=== PATIENT | male | born 1945 | race Caucasian/White ===

== ENCOUNTER 2017-09-01 15:08 | Inpatient (IN) | payer OTHER ==
[~2017-09-01] VITALS: Ht 177.8 cm; Wt 98.0 kg
[2017-09-01 16:24] LABS: UA SPECIFIC GRAVITY 1.015 (1.005-1.035); microscopic required? YES; urine erythrocyte NEGATIVE (NEGATIVE)
[2017-09-01 16:25] LABS: BASOPHIL % 0.6 % (0-2); PLATELET COUNT 273 x10^3mcL (130-400); RED CELL DISTRIBUTION WIDTH 14.3 % (11.5-14.5)
[2017-09-01 16:30] LABS: CALCIUM 8.9 mg/dL (8.5-10.1); CARBON DIOXIDE 25.3 mmol/L (21-32); CREATININE SERUM 1.3 mg/dL (0.7-1.3); POTASSIUM SERUM 4.2 mmol/L (3.5-5.1)
[2017-09-01 16:33] LABS: AMPHETAMINE QUAL UR NONE DETECTED (NEG <=1000)
[2017-09-01 16:37] LABS: BILIRUBIN TOTAL 0.46 mg/dL (0.20-1.00); TOTAL PROTEIN, SERUM 7.1 g/dL (6.4-8.2)
[2017-09-01 16:39] LABS: ALBUMIN 3.3 g/dL (3.4-5.0)
[2017-09-01] MEDS ORDERED: HALDOL DECA100 MG/ML PO (17:57)
[2017-09-01] MEDS ORDERED: COG1 PO (17:57)
[2017-09-01] MEDS ORDERED: CLONIDINE HCL0.1 MG PO (17:57)
[2017-09-01] MEDS ORDERED: ARICEPT5 MG PO (17:58)
[2017-09-01] MEDS ORDERED: NOR5 PO (17:58)
[2017-09-01] MEDS ORDERED: ZYPREXA2.5 M1 PO (17:58)
[2017-09-01 19:18] LABS: CHOLESTEROL/HDL RATIO 4.3; MAGNESIUM 2.2 mg/dL (1.8-2.4); PHOSPHOROUS 3.4 mg/dL (2.5-4.9)
[2017-09-01 19:26] LABS: T3 TOTAL 1.73 ng/mL
[2017-09-01 20:05] VITALS: BP 167/83
[2017-09-01 20:42] LABS: FREE T4 1.11 ng/dL (0.76-1.46); FREE THYROXINE INDEX 2.8 ug/dL (1.4-4.5); T4(THYROXINE) 8.2 ug/dL (4.7-13.3)
[2017-09-02 05:06] VITALS: BP 118/77
[2017-09-02 06:30] LABS: BASOPHIL % 0.4 % (0-2); PLATELET COUNT 268 x10^3mcL (130-400)
[2017-09-02 06:53] LABS: RED CELL DISTRIBUTION WIDTH 14.6 % (11.5-14.5)
[2017-09-02 07:17] LABS: CALCIUM 8.7 mg/dL (8.5-10.1); CARBON DIOXIDE 25.7 mmol/L (21-32); CHLORIDE SERUM 110 mmol/L (98-107); CREATININE SERUM 1.2 mg/dL (0.7-1.3); GFR1 > 60 mL/min; GLUCOSE SERUM 104 mg/dL (74-106); MAGNESIUM 2.1 mg/dL (1.8-2.4); PHOSPHOROUS 3.7 mg/dL (2.5-4.9); POTASSIUM SERUM 4.3 mmol/L (3.5-5.1); SODIUM SERUM 141 mmol/L (136-145)
[2017-09-02 10:03] VITALS: BP 101/44
[2017-09-02 18:33] VITALS: BP 108/61
[2017-09-02 21:13] VITALS: BP 113/65
[2017-09-02 21:28] VITALS: BP 113/65
[2017-09-03 05:55] LABS: CALCIUM 8.3 mg/dL (8.5-10.1); CARBON DIOXIDE 27.2 mmol/L (21-32); CHLORIDE SERUM 117 mmol/L (98-107); CREATININE SERUM 1.2 mg/dL (0.7-1.3); GFR1 > 60 mL/min; GLUCOSE SERUM 101 mg/dL (74-106); POTASSIUM SERUM 4.2 mmol/L (3.5-5.1); SODIUM SERUM 141 mmol/L (136-145)
[2017-09-03 06:03] LABS: BASOPHIL % 0.4 % (0-2); PLATELET COUNT 246 x10^3mcL (130-400)
[2017-09-03 06:08] VITALS: BP 133/71
[2017-09-03 06:52] LABS: RED CELL DISTRIBUTION WIDTH 14.8 % (11.5-14.5)
[2017-09-03 08:14] VITALS: BP 121/61
[2017-09-03 13:20] VITALS: BP 143/74
[2017-09-03 17:11] VITALS: BP 122/67
[2017-09-03 20:29] VITALS: BP 131/64
[2017-09-04 05:50] VITALS: BP 109/59
[2017-09-04 06:09] LABS: BASOPHIL % 0.4 % (0-2); PLATELET COUNT 256 x10^3mcL (130-400)
[2017-09-04 06:19] LABS: CALCIUM 8.8 mg/dL (8.5-10.1); CARBON DIOXIDE 28.3 mmol/L (21-32); CREATININE SERUM 1.3 mg/dL (0.7-1.3); MAGNESIUM 1.9 mg/dL (1.8-2.4); PHOSPHOROUS 3.4 mg/dL (2.5-4.9); POTASSIUM SERUM 4.4 mmol/L (3.5-5.1)
[2017-09-04 07:09] LABS: RED CELL DISTRIBUTION WIDTH 14.7 % (11.5-14.5)
[2017-09-04 09:46] VITALS: BP 121/61
[2017-09-04 12:46] VITALS: BP 117/62
[2017-09-04 16:53] VITALS: BP 123/62
[2017-09-04 21:07] VITALS: BP 135/65
[2017-09-05 05:30] VITALS: BP 174/88
[2017-09-05 06:29] LABS: BASOPHIL % 0.4 % (0-2); PLATELET COUNT 275 x10^3mcL (130-400); RED CELL DISTRIBUTION WIDTH 14.4 % (11.5-14.5)
[2017-09-05 07:17] LABS: CARBON DIOXIDE 26.8 mmol/L (21-32); CREATININE SERUM 1.3 mg/dL (0.7-1.3); MAGNESIUM 1.9 mg/dL (1.8-2.4); PHOSPHOROUS 2.6 mg/dL (2.5-4.9); POTASSIUM SERUM 4.2 mmol/L (3.5-5.1)
[2017-09-05 08:50] VITALS: BP 114/81; BP 144/81
[2017-09-05 12:57] VITALS: BP 104/51
[2017-09-05 16:54] VITALS: BP 116/61
[2017-09-05 20:36] VITALS: BP 127/68
[2017-09-06 05:39] VITALS: BP 103/52
[2017-09-06 06:00] LABS: BASOPHIL % 0.3 % (0-2); PLATELET COUNT 255 x10^3mcL (130-400); RED CELL DISTRIBUTION WIDTH 14.4 % (11.5-14.5)
[2017-09-06 06:21] LABS: CARBON DIOXIDE 29.4 mmol/L (21-32); CREATININE SERUM 1.5 mg/dL (0.7-1.3); MAGNESIUM 2.1 mg/dL (1.8-2.4); PHOSPHOROUS 3.4 mg/dL (2.5-4.9); POTASSIUM SERUM 4.4 mmol/L (3.5-5.1)
[2017-09-06 08:43] VITALS: BP 125/66
[2017-09-06 13:50] VITALS: BP 118/66
[2017-09-06 17:35] VITALS: BP 122/72
[2017-09-06 21:04] VITALS: BP 117/65
[2017-09-07 06:22] LABS: CALCIUM 9.3 mg/dL (8.5-10.1); CARBON DIOXIDE 29.6 mmol/L (21-32); CREATININE SERUM 1.5 mg/dL (0.7-1.3); MAGNESIUM 2.1 mg/dL (1.8-2.4); PHOSPHOROUS 2.9 mg/dL (2.5-4.9); POTASSIUM SERUM 4.3 mmol/L (3.5-5.1)
[2017-09-07 06:33] VITALS: BP 118/73
[2017-09-07 06:51] LABS: BASOPHIL % 0.4 % (0-2); PLATELET COUNT 280 x10^3mcL (130-400); RED CELL DISTRIBUTION WIDTH 14.3 % (11.5-14.5)
[2017-09-07 09:06] LABS: IRON 52 ug/dL (65-170)
[2017-09-07 09:24] LABS: TOTAL IRON BINDING CAPACITY 237 ug/dL (250-450)
[2017-09-07 09:58] LABS: RED BLOOD CELLS 4.22 M/mm3 (4.52-5.90)
[2017-09-07 10:41] VITALS: BP 140/75
[2017-09-07 14:49] VITALS: BP 134/71
[2017-09-07 16:34] VITALS: BP 129/79
[2017-09-07 21:13] VITALS: BP 143/78
[2017-09-08 04:50] VITALS: BP 132/72
[2017-09-08 07:13] LABS: BASOPHIL % 0.5 % (0-2); PLATELET COUNT 290 x10^3mcL (130-400)
[2017-09-08 07:31] LABS: CALCIUM 9.1 mg/dL (8.5-10.1); CARBON DIOXIDE 28.8 mmol/L (21-32); CREATININE SERUM 1.4 mg/dL (0.7-1.3); MAGNESIUM 2.1 mg/dL (1.8-2.4); PHOSPHOROUS 2.6 mg/dL (2.5-4.9); POTASSIUM SERUM 4.3 mmol/L (3.5-5.1)
[2017-09-08 07:32] LABS: RED CELL DISTRIBUTION WIDTH 14.6 % (11.5-14.5)
[2017-09-08 08:00] VITALS: BP 132/72
[2017-09-08 09:59] VITALS: BP 147/86
[2017-09-08 12:00] VITALS: BP 155/69
[2017-09-08 17:00] VITALS: BP 125/77
[2017-09-08 21:13] VITALS: BP 114/65
[2017-09-09 04:59] VITALS: BP 113/55
[2017-09-09 07:32] LABS: CARBON DIOXIDE 27.7 mmol/L (21-32); CREATININE SERUM 1.5 mg/dL (0.7-1.3); MAGNESIUM 2.3 mg/dL (1.8-2.4); PHOSPHOROUS 3.6 mg/dL (2.5-4.9); POTASSIUM SERUM 4.2 mmol/L (3.5-5.1)
[2017-09-09 07:36] LABS: BASOPHIL % 0.5 % (0-2); PLATELET COUNT 292 x10^3mcL (130-400)
[2017-09-09 07:37] LABS: RED CELL DISTRIBUTION WIDTH 14.7 % (11.5-14.5)
[2017-09-09 13:23] VITALS: BP 103/58
[2017-09-09 17:00] VITALS: BP 111/55
[2017-09-09 17:45] VITALS: BP 100/57
[2017-09-09 20:57] VITALS: BP 109/58
[2017-09-09 23:46] VITALS: BP 117/69
[2017-09-10 05:39] VITALS: BP 123/62
[2017-09-10 07:18] LABS: BASOPHIL % 0.3 % (0-2); PLATELET COUNT 304 x10^3mcL (130-400); RED CELL DISTRIBUTION WIDTH 14.2 % (11.5-14.5)
[2017-09-10 07:26] LABS: CALCIUM 9.2 mg/dL (8.5-10.1); CARBON DIOXIDE 29.2 mmol/L (21-32); CREATININE SERUM 1.6 mg/dL (0.7-1.3); MAGNESIUM 2.1 mg/dL (1.8-2.4); PHOSPHOROUS 2.9 mg/dL (2.5-4.9)
[2017-09-10 09:00] VITALS: BP 104/60
[2017-09-10 10:08] VITALS: BP 104/59
[2017-09-10 13:34] VITALS: BP 119/60
[2017-09-10 17:34] VITALS: BP 130/64
[2017-09-10 21:34] VITALS: BP 118/72
[2017-09-11 05:01] VITALS: BP 127/71
[2017-09-11 06:45] LABS: BASOPHIL % 0.2 % (0-2); PLATELET COUNT 329 x10^3mcL (130-400); RED CELL DISTRIBUTION WIDTH 13.8 % (11.5-14.5)
[2017-09-11 07:31] LABS: CALCIUM 9.2 mg/dL (8.5-10.1); CARBON DIOXIDE 27.8 mmol/L (21-32); CREATININE SERUM 1.4 mg/dL (0.7-1.3); MAGNESIUM 2.1 mg/dL (1.8-2.4); PHOSPHOROUS 2.6 mg/dL (2.5-4.9); POTASSIUM SERUM 4.1 mmol/L (3.5-5.1)
[2017-09-11 09:50] VITALS: BP 130/71
[2017-09-11 15:02] VITALS: BP 127/75
[2017-09-11 19:05] VITALS: BP 133/78
[2017-09-11 21:57] VITALS: BP 129/76
[2017-09-12 05:26] VITALS: BP 151/96
[2017-09-12 06:59] LABS: CALCIUM 9.5 mg/dL (8.5-10.1); CHLORIDE SERUM 106 mmol/L (98-107); CREATININE SERUM 1.2 mg/dL (0.7-1.3); GFR1 > 60 mL/min; GLUCOSE SERUM 108 mg/dL (74-106); PHOSPHOROUS 1.7 mg/dL (2.5-4.9); POTASSIUM SERUM 3.7 mmol/L (3.5-5.1); SODIUM SERUM 143 mmol/L (136-145)
[2017-09-12 07:03] LABS: BASOPHIL % 0.3 % (0-2); PLATELET COUNT 328 x10^3mcL (130-400); RED CELL DISTRIBUTION WIDTH 14.4 % (11.5-14.5)
[2017-09-12 08:00] VITALS: BP 147/83
[2017-09-12 12:19] VITALS: BP 144/83
[2017-09-12 15:07] VITALS: BP 134/68
[2017-09-12 18:08] VITALS: BP 135/69
[2017-09-12 21:01] VITALS: BP 109/63
[2017-09-13 05:32] VITALS: BP 122/77
[2017-09-13 06:29] LABS: CALCIUM 9.3 mg/dL (8.5-10.1); CARBON DIOXIDE 30.7 mmol/L (21-32); CREATININE SERUM 1.3 mg/dL (0.7-1.3); PHOSPHOROUS 2.8 mg/dL (2.5-4.9); POTASSIUM SERUM 4.5 mmol/L (3.5-5.1)
[2017-09-13 06:33] LABS: BASOPHIL % 0.4 % (0-2); PLATELET COUNT 334 x10^3mcL (130-400); RED CELL DISTRIBUTION WIDTH 14.1 % (11.5-14.5)
[2017-09-13 09:47] VITALS: BP 117/61
[2017-09-13 14:19] VITALS: BP 119/48
[2017-09-13 16:48] VITALS: BP 122/70
[2017-09-13 20:53] VITALS: BP 109/62
[2017-09-14 05:59] LABS: BASOPHIL % 0.3 % (0-2); PLATELET COUNT 339 x10^3mcL (130-400); RED CELL DISTRIBUTION WIDTH 14.5 % (11.5-14.5)
[2017-09-14 06:06] VITALS: BP 117/60
[2017-09-14 06:25] LABS: CALCIUM 9.3 mg/dL (8.5-10.1); CARBON DIOXIDE 29.4 mmol/L (21-32); CHLORIDE SERUM 110 mmol/L (98-107); CREATININE SERUM 1.2 mg/dL (0.7-1.3); GFR1 > 60 mL/min; GLUCOSE SERUM 162 mg/dL (74-106); MAGNESIUM 1.9 mg/dL (1.8-2.4); PHOSPHOROUS 2.9 mg/dL (2.5-4.9); POTASSIUM SERUM 4.6 mmol/L (3.5-5.1); SODIUM SERUM 145 mmol/L (136-145)
[2017-09-14 09:18] VITALS: BP 113/64
[2017-09-14 13:32] VITALS: BP 120/69
[2017-09-14 17:10] VITALS: BP 114/63
[2017-09-14 22:13] VITALS: BP 109/65
[2017-09-15 06:00] LABS: PLATELET COUNT 361 x10^3mcL (130-400); RED CELL DISTRIBUTION WIDTH 14.2 % (11.5-14.5)
[2017-09-15 06:07] VITALS: BP 105/66
[2017-09-15 06:27] LABS: CALCIUM 9.3 mg/dL (8.5-10.1); CARBON DIOXIDE 27.6 mmol/L (21-32); CREATININE SERUM 1.3 mg/dL (0.7-1.3); PHOSPHOROUS 2.5 mg/dL (2.5-4.9); POTASSIUM SERUM 4.2 mmol/L (3.5-5.1)
[2017-09-15 06:43] LABS: BASOPHIL % 0 % (0-2)
[2017-09-15 09:20] VITALS: BP 140/80
[2017-09-15 09:50] VITALS: BP 143/83
[2017-09-15 12:36] VITALS: BP 147/82
[2017-09-15 17:46] VITALS: BP 125/83
[2017-09-15 21:41] VITALS: BP 139/62
[2017-09-16 06:17] VITALS: BP 136/65
[2017-09-16 06:23] LABS: BASOPHIL % 0.3 % (0-2); PLATELET COUNT 358 x10^3mcL (130-400); RED CELL DISTRIBUTION WIDTH 14.4 % (11.5-14.5)
[2017-09-16 07:10] LABS: CALCIUM 9.6 mg/dL (8.5-10.1); CARBON DIOXIDE 28.8 mmol/L (21-32); CHLORIDE SERUM 108 mmol/L (98-107); CREATININE SERUM 1.1 mg/dL (0.7-1.3); GFR1 > 60 mL/min; GLUCOSE SERUM 115 mg/dL (74-106); MAGNESIUM 1.9 mg/dL (1.8-2.4); POTASSIUM SERUM 3.4 mmol/L (3.5-5.1); SODIUM SERUM 146 mmol/L (136-145)
[2017-09-16 09:15] VITALS: BP 124/60
[2017-09-16 13:18] VITALS: BP 110/54
[2017-09-16 21:23] VITALS: BP 92/52
[2017-09-16 21:35] VITALS: BP 101/58
[2017-09-17 05:19] VITALS: BP 98/60
[2017-09-17 07:55] VITALS: BP 124/71
[2017-09-17 21:55] VITALS: BP 113/45
[2017-09-18 05:41] VITALS: BP 104/46
[2017-09-18 06:49] LABS: PLATELET COUNT 346 x10^3mcL (130-400); RED CELL DISTRIBUTION WIDTH 14.3 % (11.5-14.5)
[2017-09-18 06:57] LABS: CALCIUM 9.4 mg/dL (8.5-10.1); CHLORIDE SERUM 107 mmol/L (98-107); CREATININE SERUM 1.1 mg/dL (0.7-1.3); GFR1 > 60 mL/min; GLUCOSE SERUM 160 mg/dL (74-106); PHOSPHOROUS 2.7 mg/dL (2.5-4.9); POTASSIUM SERUM 4.5 mmol/L (3.5-5.1); SODIUM SERUM 141 mmol/L (136-145)
[2017-09-18 07:37] LABS: BASOPHIL % 0 % (0-2)
[2017-09-18 13:40] VITALS: BP 138/66
[2017-09-18 17:38] VITALS: BP 132/64
[2017-09-18 21:16] VITALS: BP 129/63
[2017-09-19 06:01] VITALS: BP 130/63
[2017-09-19 06:30] LABS: CALCIUM 9.3 mg/dL (8.5-10.1); CARBON DIOXIDE 29.1 mmol/L (21-32); CHLORIDE SERUM 107 mmol/L (98-107); CREATININE SERUM 1.1 mg/dL (0.7-1.3); GFR1 > 60 mL/min; GLUCOSE SERUM 160 mg/dL (74-106); PHOSPHOROUS 2.6 mg/dL (2.5-4.9); POTASSIUM SERUM 4.9 mmol/L (3.5-5.1); SODIUM SERUM 140 mmol/L (136-145)
[2017-09-19 07:07] LABS: PLATELET COUNT 372 x10^3mcL (130-400); RED CELL DISTRIBUTION WIDTH 14.5 % (11.5-14.5)
[2017-09-19 07:08] LABS: BASOPHIL % 0 % (0-2)
[2017-09-19 08:55] VITALS: BP 125/64
[2017-09-19 10:08] VITALS: BP 129/67
[2017-09-19 13:10] VITALS: BP 131/71
[2017-09-19 16:35] VITALS: BP 123/65
[2017-09-19 22:11] VITALS: BP 119/60
[2017-09-20 06:07] VITALS: BP 114/63
[2017-09-20 06:39] LABS: CALCIUM 9.6 mg/dL (8.5-10.1); CHLORIDE SERUM 107 mmol/L (98-107); CREATININE SERUM 1.1 mg/dL (0.7-1.3); GFR1 > 60 mL/min; GLUCOSE SERUM 169 mg/dL (74-106); MAGNESIUM 2.3 mg/dL (1.8-2.4); PHOSPHOROUS 3.1 mg/dL (2.5-4.9); POTASSIUM SERUM 4.9 mmol/L (3.5-5.1); SODIUM SERUM 141 mmol/L (136-145)
[2017-09-20 07:05] LABS: PLATELET COUNT 384 x10^3mcL (130-400)
[2017-09-20 07:26] LABS: BASOPHIL % 0 % (0-2); RED CELL DISTRIBUTION WIDTH 14.6 % (11.5-14.5)
[2017-09-20 08:37] VITALS: BP 115/64
[2017-09-20 13:05] VITALS: BP 119/68
[2017-09-20 18:16] VITALS: BP 120/61
[2017-09-20 21:05] VITALS: BP 121/62
[2017-09-21 05:23] VITALS: BP 120/63
[2017-09-21 08:57] VITALS: BP 129/67
[2017-09-21 12:49] VITALS: BP 123/61
[2017-09-21 17:10] VITALS: BP 123/63
[2017-09-21 21:29] VITALS: BP 123/69
[2017-09-22 05:19] VITALS: BP 123/69
[2017-09-22 05:36] VITALS: BP 123/68
[2017-09-22 06:25] LABS: PLATELET COUNT 355 x10^3mcL (130-400)
[2017-09-22 06:39] LABS: BASOPHIL % 0 % (0-2); RED CELL DISTRIBUTION WIDTH 14.9 % (11.5-14.5)
[2017-09-22 06:55] LABS: CALCIUM 9.2 mg/dL (8.5-10.1); CARBON DIOXIDE 24.9 mmol/L (21-32); CHLORIDE SERUM 107 mmol/L (98-107); CREATININE SERUM 1.1 mg/dL (0.7-1.3); GFR1 > 60 mL/min; GLUCOSE SERUM 171 mg/dL (74-106); MAGNESIUM 2.3 mg/dL (1.8-2.4); PHOSPHOROUS 3.3 mg/dL (2.5-4.9); SODIUM SERUM 137 mmol/L (136-145)
[2017-09-22 06:58] LABS: IRON 69 ug/dL (65-170); TOTAL IRON BINDING CAPACITY 245 ug/dL (250-450)
[2017-09-22 08:35] VITALS: BP 120/61
[2017-09-22 13:00] VITALS: BP 126/71
[2017-09-22 17:52] VITALS: BP 158/79
[2017-09-22 20:25] VITALS: BP 124/58
[2017-09-23 05:13] VITALS: BP 119/68
[2017-09-23 07:16] LABS: CARBON DIOXIDE 26.2 mmol/L (21-32); CHLORIDE SERUM 107 mmol/L (98-107); GFR1 > 60 mL/min; GLUCOSE SERUM 161 mg/dL (74-106); SODIUM SERUM 137 mmol/L (136-145)
[2017-09-23 07:25] LABS: BASOPHIL % 0.2 % (0-2); PLATELET COUNT 351 x10^3mcL (130-400); RED CELL DISTRIBUTION WIDTH 14.8 % (11.5-14.5)
[2017-09-23 07:44] VITALS: BP 105/42
[2017-09-23 10:23] VITALS: BP 149/77
[2017-09-23 13:05] VITALS: BP 117/48
[2017-09-23 17:28] VITALS: BP 118/64
[2017-09-23 20:10] VITALS: BP 101/47
[2017-09-24 03:59] VITALS: BP 116/65
[2017-09-24 06:31] LABS: CALCIUM 8.8 mg/dL (8.5-10.1); CARBON DIOXIDE 26.7 mmol/L (21-32); CHLORIDE SERUM 106 mmol/L (98-107); GLUCOSE SERUM 160 mg/dL (74-106); MAGNESIUM 2.1 mg/dL (1.8-2.4); PHOSPHOROUS 3.2 mg/dL (2.5-4.9); POTASSIUM SERUM 5.1 mmol/L (3.5-5.1); SODIUM SERUM 138 mmol/L (136-145)
[2017-09-24 06:42] LABS: BASOPHIL % 0.1 % (0-2); PLATELET COUNT 327 x10^3mcL (130-400)
[2017-09-24 06:48] LABS: RED CELL DISTRIBUTION WIDTH 15.1 % (11.5-14.5)
[2017-09-24 08:39] VITALS: BP 122/56
[2017-09-24 12:48] VITALS: BP 132/74
[2017-09-24 16:52] VITALS: BP 121/67
[2017-09-24 21:39] VITALS: BP 111/49
[2017-09-25 05:50] VITALS: BP 124/69
[2017-09-25 06:23] LABS: BASOPHIL % 0.1 % (0-2); PLATELET COUNT 318 x10^3mcL (130-400)
[2017-09-25 06:27] LABS: CARBON DIOXIDE 28.5 mmol/L (21-32); CHLORIDE SERUM 106 mmol/L (98-107); GLUCOSE SERUM 131 mg/dL (74-106); MAGNESIUM 2.2 mg/dL (1.8-2.4); PHOSPHOROUS 3.1 mg/dL (2.5-4.9); SODIUM SERUM 138 mmol/L (136-145)
[2017-09-25 06:31] LABS: GFR1 > 60 mL/min
[2017-09-25 06:55] LABS: RED CELL DISTRIBUTION WIDTH 14.6 % (11.5-14.5)
[2017-09-25 08:36] VITALS: BP 127/74
[2017-09-25 12:17] VITALS: BP 131/76
[2017-09-25 16:10] VITALS: BP 136/73
[2017-09-25 21:11] VITALS: BP 117/62
[2017-09-26 05:36] VITALS: BP 125/47
[2017-09-26 06:27] LABS: CALCIUM 8.7 mg/dL (8.5-10.1); CARBON DIOXIDE 28.8 mmol/L (21-32); CHLORIDE SERUM 105 mmol/L (98-107); CREATININE SERUM 1.1 mg/dL (0.7-1.3); GFR1 > 60 mL/min; GLUCOSE SERUM 134 mg/dL (74-106); MAGNESIUM 2.1 mg/dL (1.8-2.4); POTASSIUM SERUM 5.1 mmol/L (3.5-5.1); SODIUM SERUM 138 mmol/L (136-145)
[2017-09-26 07:35] LABS: PLATELET COUNT 274 x10^3mcL (130-400)
[2017-09-26 07:36] LABS: BASOPHIL % 0 % (0-2); RED CELL DISTRIBUTION WIDTH 14.9 % (11.5-14.5)
[2017-09-26 09:13] VITALS: BP 110/61
[2017-09-26 13:42] VITALS: BP 122/59
[2017-09-26 17:03] VITALS: BP 122/61
[2017-09-26 21:16] VITALS: BP 117/60
[2017-09-27 03:51] VITALS: BP 116/60
[2017-09-27 09:18] VITALS: BP 131/69
[2017-09-27 13:58] VITALS: BP 126/68
[2017-09-27 17:21] VITALS: BP 133/72
[2017-09-27 20:57] VITALS: BP 123/62
[2017-09-28] VITALS (7 sets, daily range): BP systolic 120–138; BP diastolic 61–78
[2017-09-28 06:47] LABS: BASOPHIL % 0 % (0-2); PLATELET COUNT 235 x10^3mcL (130-400); RED CELL DISTRIBUTION WIDTH 14.9 % (11.5-14.5)
[2017-09-28 07:25] LABS: CALCIUM 8.5 mg/dL (8.5-10.1); CARBON DIOXIDE 28.1 mmol/L (21-32); CHLORIDE SERUM 106 mmol/L (98-107); CREATININE SERUM 0.9 mg/dL (0.7-1.3); GFR1 > 60 mL/min; GLUCOSE SERUM 132 mg/dL (74-106); PHOSPHOROUS 2.9 mg/dL (2.5-4.9); POTASSIUM SERUM 5.3 mmol/L (3.5-5.1); SODIUM SERUM 139 mmol/L (136-145)
[2017-09-29 05:04] VITALS: BP 115/60
[2017-09-29 10:16] VITALS: BP 132/63
[2017-09-29 13:38] VITALS: BP 122/62
[2017-09-29 16:47] VITALS: BP 133/76
[2017-09-29 20:10] VITALS: BP 103/54
[2017-09-30 05:17] VITALS: BP 122/64
[2017-09-30 08:52] VITALS: BP 116/64
[2017-09-30 12:47] VITALS: BP 138/72
[2017-09-30 18:45] VITALS: BP 121/71
[2017-09-30 21:43] VITALS: BP 122/65
[2017-10-01 05:59] VITALS: BP 128/67
[2017-10-01 10:13] VITALS: BP 128/55
[2017-10-01 12:53] VITALS: BP 128/55
[2017-10-01 14:55] VITALS: BP 117/62
[2017-10-01 18:45] VITALS: BP 119/43
[2017-10-01 20:27] VITALS: BP 119/71
[2017-10-02 05:41] VITALS: BP 122/68
[2017-10-02 08:20] VITALS: BP 132/72
[2017-10-02 13:20] VITALS: BP 119/61
[2017-10-02 16:38] LABS: PLATELET COUNT 186 x10^3mcL (130-400)
[2017-10-02 16:40] LABS: BASOPHIL % 0 % (0-2); RED CELL DISTRIBUTION WIDTH 15.4 % (11.5-14.5)
[2017-10-02 20:43] VITALS: BP 126/68
[2017-10-03 05:45] VITALS: BP 133/61
[2017-10-03 06:27] LABS: CALCIUM 8.1 mg/dL (8.5-10.1); CARBON DIOXIDE 25.2 mmol/L (21-32); CHLORIDE SERUM 107 mmol/L (98-107); CREATININE SERUM 0.9 mg/dL (0.7-1.3); GFR1 > 60 mL/min; GLUCOSE SERUM 145 mg/dL (74-106); MAGNESIUM 1.9 mg/dL (1.8-2.4); PHOSPHOROUS 2.5 mg/dL (2.5-4.9); POTASSIUM SERUM 5.1 mmol/L (3.5-5.1); SODIUM SERUM 137 mmol/L (136-145)
[2017-10-03 06:42] LABS: BASOPHIL % 0.4 % (0-2); PLATELET COUNT 169 x10^3mcL (130-400)
[2017-10-03 06:43] LABS: RED CELL DISTRIBUTION WIDTH 15.2 % (11.5-14.5)
[2017-10-03 08:44] VITALS: BP 131/68
[2017-10-03 13:08] VITALS: BP 138/70
[2017-10-03 16:52] VITALS: BP 112/61
[2017-10-03 21:11] VITALS: BP 132/60
[2017-10-04 06:16] VITALS: BP 143/65
[2017-10-04 08:33] VITALS: BP 143/65
[2017-10-04 08:45] VITALS: BP 125/61
[2017-10-04 13:44] VITALS: BP 124/63
[2017-10-04 16:55] VITALS: BP 123/69
[2017-10-04 19:43] VITALS: Ht 177.8 cm; Wt 98.0 kg
[2017-10-04 20:53] VITALS: BP 142/76
[2017-10-05 05:45] VITALS: BP 135/66
[2017-10-05 09:20] VITALS: BP 111/66
[2017-10-05 09:22] LABS: PLATELET COUNT 166 x10^3mcL (130-400)
[2017-10-05 09:27] LABS: BASOPHIL % 0 % (0-2); RED CELL DISTRIBUTION WIDTH 15.8 % (11.5-14.5)
[2017-10-05 09:37] LABS: ALKALINE PHOSPHATASE 71 U/L (46-116); ALT/SGPT 31 U/L (16-63); AST/SGOT 11 U/L (15-37); BILIRUBIN TOTAL 0.7 mg/dL (0.20-1.00); CALCIUM 8.1 mg/dL (8.5-10.1); CARBON DIOXIDE 28.2 mmol/L (21-32); CHLORIDE SERUM 109 mmol/L (98-107); CREATININE SERUM 0.8 mg/dL (0.7-1.3); GFR1 > 60 mL/min; GLUCOSE SERUM 102 mg/dL (74-106); POTASSIUM SERUM 4.7 mmol/L (3.5-5.1); SODIUM SERUM 141 mmol/L (136-145)
[2017-10-05 09:50] LABS: ALBUMIN 2.4 g/dL (3.4-5.0); TOTAL PROTEIN, SERUM 5.3 g/dL (6.4-8.2)
[2017-10-05 11:45] VITALS: BP 99/53
[2017-10-05 13:40] VITALS: BP 107/61
[2017-10-05 17:40] VITALS: BP 102/53
[2017-10-05 21:09] VITALS: BP 111/57
[2017-10-06 05:19] VITALS: BP 115/60
[2017-10-06 08:37] VITALS: BP 107/63
[2017-10-06 13:33] VITALS: BP 100/49
[2017-10-06 16:50] VITALS: BP 111/60
[2017-10-06 21:02] VITALS: BP 110/63
[2017-10-07 05:04] VITALS: BP 112/62
[2017-10-07 07:55] VITALS: BP 112/62
[2017-10-07 08:25] VITALS: BP 113/56
[2017-10-07 13:50] VITALS: BP 128/67
[2017-10-07 17:40] VITALS: BP 125/61
[2017-10-07 21:28] VITALS: BP 124/54
[2017-10-08 05:48] VITALS: BP 138/75
[2017-10-08 06:27] LABS: BASOPHIL % 0.1 % (0-2); PLATELET COUNT 138 x10^3mcL (130-400)
[2017-10-08 06:56] LABS: CALCIUM 8.2 mg/dL (8.5-10.1); CHLORIDE SERUM 106 mmol/L (98-107); CREATININE SERUM 0.8 mg/dL (0.7-1.3); GFR1 > 60 mL/min; GLUCOSE SERUM 149 mg/dL (74-106); SODIUM SERUM 138 mmol/L (136-145)
[2017-10-08 07:02] LABS: RED CELL DISTRIBUTION WIDTH 15.7 % (11.5-14.5)
[2017-10-08 08:00] VITALS: BP 143/74
[2017-10-08 13:21] VITALS: BP 112/61
[2017-10-08 16:53] VITALS: BP 121/60
[2017-10-08 20:46] VITALS: BP 113/58
[2017-10-09 04:57] VITALS: BP 115/60
[2017-10-09 06:25] LABS: PLATELET COUNT 139 x10^3mcL (130-400)
[2017-10-09 06:38] LABS: BASOPHIL % 0 % (0-2); RED CELL DISTRIBUTION WIDTH 16.5 % (11.5-14.5)
[2017-10-09 06:46] LABS: CARBON DIOXIDE 27.7 mmol/L (21-32); CHLORIDE SERUM 103 mmol/L (98-107); GFR1 > 60 mL/min; GLUCOSE SERUM 141 mg/dL (74-106); MAGNESIUM 1.7 mg/dL (1.8-2.4); PHOSPHOROUS 3.1 mg/dL (2.5-4.9); POTASSIUM SERUM 4.9 mmol/L (3.5-5.1); SODIUM SERUM 137 mmol/L (136-145)
[2017-10-09 07:50] VITALS: BP 124/62
[2017-10-09 12:21] VITALS: BP 116/58
[2017-10-09 18:09] VITALS: BP 119/65
[2017-10-09 20:14] VITALS: BP 117/62
[2017-10-10 05:31] VITALS: BP 109/62
[2017-10-10 06:28] LABS: PLATELET COUNT 130 x10^3mcL (130-400)
[2017-10-10 06:29] LABS: BASOPHIL % 0 % (0-2)
[2017-10-10 06:36] LABS: CALCIUM 8.7 mg/dL (8.5-10.1); CARBON DIOXIDE 27.1 mmol/L (21-32); CHLORIDE SERUM 105 mmol/L (98-107); CREATININE SERUM 0.9 mg/dL (0.7-1.3); GFR1 > 60 mL/min; GLUCOSE SERUM 136 mg/dL (74-106); MAGNESIUM 1.8 mg/dL (1.8-2.4); PHOSPHOROUS 2.9 mg/dL (2.5-4.9); POTASSIUM SERUM 4.7 mmol/L (3.5-5.1); SODIUM SERUM 138 mmol/L (136-145)
[2017-10-10 07:35] VITALS: BP 109/62
[2017-10-10 10:03] VITALS: BP 112/57
[2017-10-10 13:35] VITALS: BP 107/63
[2017-10-10 17:20] VITALS: BP 104/48
[2017-10-10 21:50] VITALS: BP 112/56
[2017-10-11 05:33] VITALS: BP 122/65
[2017-10-11 08:11] LABS: CALCIUM 8.2 mg/dL (8.5-10.1); CARBON DIOXIDE 24.9 mmol/L (21-32); CHLORIDE SERUM 105 mmol/L (98-107); CREATININE SERUM 0.9 mg/dL (0.7-1.3); GFR1 > 60 mL/min; GLUCOSE SERUM 148 mg/dL (74-106); MAGNESIUM 1.8 mg/dL (1.8-2.4); PHOSPHOROUS 2.5 mg/dL (2.5-4.9); SODIUM SERUM 137 mmol/L (136-145)
[2017-10-11 08:24] LABS: PLATELET COUNT 141 x10^3mcL (130-400)
[2017-10-11 08:26] LABS: BASOPHIL % 0 % (0-2); RED CELL DISTRIBUTION WIDTH 16.8 % (11.5-14.5)
[2017-10-11 10:04] VITALS: BP 114/52
[2017-10-11 12:55] VITALS: BP 114/63
[2017-10-11 17:25] VITALS: BP 123/57
[2017-10-11 20:51] VITALS: BP 131/81
[2017-10-12 05:23] VITALS: BP 126/69
[2017-10-12 08:09] LABS: BASOPHIL % 0.3 % (0-2)
[2017-10-12 08:20] LABS: RED CELL DISTRIBUTION WIDTH 16.4 % (11.5-14.5)
[2017-10-12 08:21] LABS: PLATELET COUNT 98 x10^3mcL (130-400)
[2017-10-12 09:12] LABS: CALCIUM 8.8 mg/dL (8.5-10.1); CARBON DIOXIDE 25.1 mmol/L (21-32); CHLORIDE SERUM 105 mmol/L (98-107); CREATININE SERUM 0.9 mg/dL (0.7-1.3); GFR1 > 60 mL/min; GLUCOSE SERUM 143 mg/dL (74-106); MAGNESIUM 1.9 mg/dL (1.8-2.4); PHOSPHOROUS 2.6 mg/dL (2.5-4.9); POTASSIUM SERUM 5.4 mmol/L (3.5-5.1); SODIUM SERUM 137 mmol/L (136-145)
[2017-10-12 09:33] VITALS: BP 140/59
[2017-10-12 12:12] VITALS: BP 114/61
[2017-10-12 17:32] VITALS: BP 106/64
[2017-10-12 20:38] VITALS: BP 117/62
[2017-10-13 05:33] VITALS: BP 135/71
[2017-10-13 06:52] LABS: CALCIUM 8.1 mg/dL (8.5-10.1); CARBON DIOXIDE 25.4 mmol/L (21-32); CHLORIDE SERUM 103 mmol/L (98-107); CREATININE SERUM 0.7 mg/dL (0.7-1.3); GFR1 > 60 mL/min; GLUCOSE SERUM 137 mg/dL (74-106); POTASSIUM SERUM 4.6 mmol/L (3.5-5.1); SODIUM SERUM 135 mmol/L (136-145)
[2017-10-13 07:22] LABS: BASOPHIL % 0 % (0-2); PLATELET COUNT 115 x10^3mcL (130-400); RED CELL DISTRIBUTION WIDTH 16.3 % (11.5-14.5)
[2017-10-13 09:13] VITALS: BP 115/66
[2017-10-13 12:15] VITALS: BP 118/63
[2017-10-13 16:58] VITALS: BP 113/60
[2017-10-13 20:42] VITALS: BP 97/48
[2017-10-14 04:49] VITALS: BP 115/64
[2017-10-14 08:40] VITALS: BP 98/49
[2017-10-14 12:01] VITALS: BP 104/59
[2017-10-14 16:33] VITALS: BP 116/62
[2017-10-14 20:51] VITALS: BP 114/52
[2017-10-15 06:18] VITALS: BP 108/47
[2017-10-15 08:45] VITALS: BP 123/47
[2017-10-15 12:42] VITALS: BP 117/66
[2017-10-15 17:20] VITALS: BP 111/69
[2017-10-15 20:13] VITALS: BP 116/62
[2017-10-16 05:13] VITALS: BP 116/72
[2017-10-16 09:57] VITALS: BP 128/78
[2017-10-16 12:52] VITALS: BP 116/64
[2017-10-16 17:05] VITALS: BP 115/56
[2017-10-16 21:09] VITALS: BP 127/71
[2017-10-17 05:50] VITALS: BP 113/70
[2017-10-17 06:57] LABS: BASOPHIL % 0 % (0-2); PLATELET COUNT 106 x10^3mcL (130-400); RED CELL DISTRIBUTION WIDTH 16.4 % (11.5-14.5)
[2017-10-17 07:15] LABS: CARBON DIOXIDE 28.3 mmol/L (21-32); CHLORIDE SERUM 103 mmol/L (98-107); CREATININE SERUM 0.9 mg/dL (0.7-1.3); GFR1 > 60 mL/min; GLUCOSE SERUM 157 mg/dL (74-106); MAGNESIUM 1.8 mg/dL (1.8-2.4); PHOSPHOROUS 2.5 mg/dL (2.5-4.9); POTASSIUM SERUM 4.8 mmol/L (3.5-5.1); SODIUM SERUM 136 mmol/L (136-145)
[2017-10-17 08:09] VITALS: BP 115/71
[2017-10-17 12:27] VITALS: BP 136/75
[2017-10-17 15:54] VITALS: BP 106/60
[2017-10-17 21:59] VITALS: BP 113/61
[2017-10-18 05:05] VITALS: BP 123/76
[2017-10-18 08:06] VITALS: BP 116/72
[2017-10-18 08:15] VITALS: BP 116/72
[2017-10-18 12:41] VITALS: BP 120/70
[2017-10-18 16:11] VITALS: BP 124/70
[2017-10-18 20:40] VITALS: BP 118/71
[2017-10-19 05:26] VITALS: BP 137/54; BP 137/84
[2017-10-19 10:55] VITALS: BP 117/75
[2017-10-19] MEDS ORDERED: HEP5I SC (14:08)
[2017-10-19] MEDS ORDERED: THERA TABLET400 MCG PO (14:09)
[2017-10-19] MEDS ORDERED: MEDROL DOSEPAK4 MG PO (14:09)
[2017-10-19 14:21] VITALS: BP 117/75
== END 2017-10-19 15:00 | DRG 177 ==
LOC: ED 15:08 → DU 17:40 → EDBEDREQ 17:43 → DU 19:50
PROVIDERS: Emergency Medicine; Family Medicine; Family Medicine Sports Medicine; General Practice; Internal Medicine; Student in an Organized Health Care Education/Training Program
DX: J69.0 Pneumonitis due to inhalation of food and vomit (principal); G93.41 Metabolic encephalopathy; N17.0 Acute kidney failure with tubular necrosis; J96.21 Acute and chronic respiratory failure with hypoxia; E43 Unspecified severe protein-calorie malnutrition; R45.851 Suicidal ideations; E87.0 Hyperosmolality and hypernatremia; J98.11 Atelectasis; D68.59 Other primary thrombophilia; I43 Cardiomyopathy in diseases classified elsewhere; F20.0 Paranoid schizophrenia; E86.0 Dehydration; E87.6 Hypokalemia; G30.9 Alzheimer's disease, unspecified; F02.80 Dementia in other diseases classified elsewhere, unspecified severity, without behavioral disturbance, psychotic disturbance, mood disturbance, and anxiety; E11.65 Type 2 diabetes mellitus with hyperglycemia; E11.22 Type 2 diabetes mellitus with diabetic chronic kidney disease; N18.3 Chronic kidney disease, stage 3 (moderate); I13.10 Hypertensive heart and chronic kidney disease without heart failure, with stage 1 through stage 4 chronic kidney disease, or unspecified chronic kidney disease; F12.90 Cannabis use, unspecified, uncomplicated; E78.5 Hyperlipidemia, unspecified; E87.8 Other disorders of electrolyte and fluid balance, not elsewhere classified; D50.9 Iron deficiency anemia, unspecified; D72.829 Elevated white blood cell count, unspecified; E02 Subclinical iodine-deficiency hypothyroidism; E83.39 Other disorders of phosphorus metabolism; Y92.028 Other place in mobile home as the place of occurrence of the external cause; R31.9 Hematuria, unspecified; E87.5 Hyperkalemia; Z99.3 Dependence on wheelchair; Z99.81 Dependence on supplemental oxygen; Z79.899 Other long term (current) drug therapy; Z68.30 Body mass index [BMI] 30.0-30.9, adult; Z91.14 Patient's other noncompliance with medication regimen; Z91.19 Patient's noncompliance with other medical treatment and regimen; T38.0X5A Adverse effect of glucocorticoids and synthetic analogues, initial encounter
CPT/HCPCS: 36600; 82962; 83880; 84439; 92526-GN; 92610-GN; 94150; 97110-GP; 97116-GP; 97530-GP; G0480; J1630; J1644; J1815; J1940; J2543; J2920; J3230; J3420; J3490; J7030; J7620; Q0092